=== PATIENT | male | born 1960 | race Caucasian/White ===

== ENCOUNTER 2024-06-03 14:47 | Emergency (ER) | payer MEDICARE, SELFPAY ==
[2024-06-03 14:58] VITALS: BP 128/78; PULSE 89; RESP 18; TEMP 36.6; O2SAT 97
--- NOTE | 2024-06-03 15:04 | ED.ALLEREA ---
HPI - Allergic Reaction General Chief complaint: Allergic Reaction Stated complaint: allergic reaction Time Seen by Provider: 06/03/24 15:03 History of Present Illness HPI narrative: 63-year-old male present to the emergency department for evaluation for a suspected allergic reaction. Patient does have a prior history of allergies to NSAIDs and did have similar symptoms approximately 2 years ago. Patient states he did not have any NSAIDs today. Patient states he had a typical lunch of foods he normally eats and some ice tea when he started noticing some bilateral lip swelling. Patient presented to [facility] urgent care and was treated with an EpiPen and EMS was called. IV was established by EMS but no additional medications were given. Upon arrival emergency department patient states he does feel his symptoms are improving. Patient states that he has no difficulty breathing or swallowing. Patient feels that his facial swelling has improved. Related Data Allergies Allergy/AdvReac Type Severity Reaction Status Date / Time NSAIDS (Non-Steroidal Allergy Swelling Verified 06/03/24 15:17 Anti-Inflamma of Lip/Tongue/Throat acetaminophen [From Vicodin] AdvReac Redness of Verified 06/03/24 15:17 Skin hydrocodone [From Vicodin] AdvReac Redness of Verified 06/03/24 15:17 Skin Review of Systems Review of Systems: All systems reviewed & are unremarkable except as noted in HPI and below Exam Narrative: APPEARANCE: Well appearing, no pain, no distress, well-nourished. HEAD: Some minor lateral lip swelling with no significant swelling of the tongue with normal posterior pharynx, no submandibular swelling EYES: PERRLA/EOMI, conjunctivae clear. NOSE: Normal no drainage EARS:TMS clear with good light reflex. THROAT: Pharynx clear, no exudate. No stridor NECK: Supple. No adenopathy, no masses. RESPIRATORY: Airway patent, respirations nonlabored. Clear to auscultation bilaterally, no rales, rhonchi, wheezing. CARDIOVASCULAR: Regular rate and rhythm without murmurs rubs or gallops. ABDOMINAL: Soft, nontender, nondistended, normal bowel sounds MUSCULOSKELETAL: Moves all extremities. Strength/ROM intact, No edema, No calf tenderness. NEURO: Alert. Cranial nerves II through XII intact. Grossly intact SKIN: Warm, dry. Normal Color Course Vital Signs Vital signs: Vital Signs Temperature 97.8 F 06/03/24 14:58 Pulse Rate 89 06/03/24 14:58 Respiratory Rate 18 06/03/24 14:58 Blood Pressure 128/78 06/03/24 14:58 Pulse Oximetry 97 06/03/24 14:58 Oxygen Delivery Room Air 06/03/24 14:58 Temperature 97.8 F 06/03/24 14:58 Pulse Rate 81 06/03/24 17:12 Respiratory Rate 16 06/03/24 17:12 Blood Pressure 137/88 06/03/24 17:12 Pulse Oximetry 95 06/03/24 17:12 Oxygen Delivery Room Air 06/03/24 15:25 MDM - Allergic Reaction MDM Narrative Medical decision making narrative: 63-year-old male presents emergency department for evaluation for suspected allergic reaction. Patient did have significant improvement with the epinephrine, Solu-Medrol, famotidine and Benadryl. Concern for angioedema due to improvement with medications. Patient was evaluated for 3 hours after he received epinephrine dose and continue to feel improved. Patient was requesting discharge home. Patient was discharged home prednisone for the next 5 days. Patient was encouraged to have close follow-up with his primary care physician. Differential Diagnosis Differential diagnosis: Likely anaphylaxis, allergic reaction, angioedema, adverse reaction to drug and urticaria Lab Data Attestation: I reviewed the patient's lab results. Discharge Plan Discharge Clinical Impression: Allergic reaction Patient Disposition: Home, Self-Care Condition: Stable Instructions: Antibiotic Form, Allergies (ED), General Allergic Reaction (ED) Additional Instructions: Prednisone as directed for the next 5 days. Benadryl as neede
[2024-06-03] MEDS: diphenhydrAMINE HCl INJ 50 MG/ML VIAL 25 MG IV PUSH (15:19)
[2024-06-03] MEDS: methylPREDNISolone SOD SUCC 125 MG VIAL IV PUSH (15:20)
[2024-06-03] MEDS: FAMOTIDINE 20 MG/2 ML VIAL IV PUSH (15:23)
[2024-06-03 15:25] VITALS: O2SAT 94
[2024-06-03 15:27] VITALS: BP 139/80; PULSE 81; RESP 14; O2SAT 96
[2024-06-03 17:12] VITALS: BP 137/88; PULSE 81; RESP 16; O2SAT 95
== END 2024-06-03 18:01 | disposition home or self-care (01) ==
PROVIDERS: Emergency Provider Emergency Medicine; PCP Family Medicine
DX: T78.40XA Allergy, unspecified, initial encounter (principal); Z88.8 Allergy status to other drugs, medicaments and biological substances; X58.XXXA Exposure to other specified factors, initial encounter
CPT/HCPCS: 96374; 96375; 99284; J1200; J2919